=== PATIENT | male | born 1950 | race Caucasian/White ===

== ENCOUNTER 2017-04-10 08:55 | Day surgery (SDC) | payer MEDICARE ==
[~2017-04-10 08:55] MED LIST: MIDAZOLAM INJ 2 MG/2 ML VIAL ONE; TROP 1%/CYCLOPEN 1%/PHENYL 2% DROPS ONE
[2017-04-10] MEDS: PROPARACAINE 0.5% OPHTH SOL 15 ML BTTL ONE ×2 (09:00→09:32)
[2017-04-10] MEDS: TOBRAMYCIN SULF 0.3 % OPHT SOL 1 DROP LEFT_EYE ONE ×2 (09:00→09:51)
[2017-04-10] MEDS ORDERED: LIDOCAINE 1% PF 2 ML AMP INJ ONE (09:38)
[2017-04-10] MEDS ORDERED: DEXAMETHASONE 0.1% OPHTH SOL 1 DROP LEFT_EYE ONE ×2 (09:43→09:51)
[2017-04-10] MEDS ORDERED: TOBRAMYCIN SULF 0.3 % OPHT SOL 1 DROP LEFT_EYE ONE (09:44)
[2017-04-10] MEDS ORDERED: BRIMONIDINE 0.2% OPHTH DROPS LEFT_EYE ONE ×2 (09:44→09:51)
[2017-04-10 13:51] VITALS: BP 130/76; TEMP 98.1; O2SAT 98
== END 2017-04-10 10:30 | disposition home or self-care (01) ==
LOC: AMB 08:55
PROVIDERS: ATTEND Ophthalmology
DX: H25.12 Age-related nuclear cataract, left eye (principal); I10 Essential (primary) hypertension; I25.10 Atherosclerotic heart disease of native coronary artery without angina pectoris; E11.36 Type 2 diabetes mellitus with diabetic cataract; Z79.84 Long term (current) use of oral hypoglycemic drugs; Z79.82 Long term (current) use of aspirin; Z79.899 Other long term (current) drug therapy
CPT/HCPCS: 00142; 36416; 66984; 82948; J2250

== ENCOUNTER 2017-04-24 05:41 | Day surgery (SDC) | payer MEDICARE ==
[2017-04-24] MEDS ORDERED: TROP 1%/CYCLOPEN 1%/PHENYL 2% DROPS ONE (06:01)
[2017-04-24] MEDS ORDERED: MIDAZOLAM INJ 2 MG/2 ML VIAL ONE (06:52)
[2017-04-24] MEDS ORDERED: TROP 1%/CYCLOPEN 1%/PHENYL 2% DROPS OPHTH ONE (08:37)
[2017-04-24] MEDS: TOBRAMYCIN SULF 0.3 % OPHT SOL 1 DROP RIGHT_EYE ONE ×2 (08:37→09:37)
[2017-04-24] MEDS: PROPARACAINE 0.5% OPHTH SOL 15 ML BTTL ONE ×3 (08:37→09:17)
[2017-04-24] MEDS ORDERED: LIDOCAINE 1% PF 2 ML AMP INJ ONE (09:22)
[2017-04-24] MEDS ORDERED: DEXAMETHASONE 0.1% OPHTH SOL 1 DROP RIGHT_EYE ONE ×2 (09:27→09:37)
[2017-04-24] MEDS ORDERED: TOBRAMYCIN SULF 0.3 % OPHT SOL 1 DROP RIGHT_EYE ONE (09:27)
[2017-04-24] MEDS ORDERED: BRIMONIDINE 0.2% OPHTH DROPS RIGHT_EYE ONE ×2 (09:28→09:37)
[2017-04-24 10:52] VITALS: BP 141/81; TEMP 98.2; O2SAT 96
== END 2017-04-24 10:20 | disposition home or self-care (01) ==
LOC: AMB 05:41
PROVIDERS: ATTEND Ophthalmology
DX: H25.11 Age-related nuclear cataract, right eye (principal); I10 Essential (primary) hypertension; E11.9 Type 2 diabetes mellitus without complications; Z79.84 Long term (current) use of oral hypoglycemic drugs; Z79.899 Other long term (current) drug therapy
CPT/HCPCS: 00142; 36416; 66984; 82948; J2250

== ENCOUNTER 2017-10-04 07:31 | Emergency (ER) | payer MEDICARE ==
[2017-10-04 07:42] VITALS: TEMP 97.3
--- NOTE | 2017-10-04 07:44 | ED.PDOC ---
History of Present Illness - General Chief Complaint: General Stated Complaint: numbness to right forearm Time Seen by Provider: 10/04/17 07:43 Source: patient Exam Limitations: no limitations - History of Present Illness Initial Comments: Shailesh Clinton 67 y/o male stated that he had numbness on his right forearm medially 25 minutes ago working on his shop and had dull pain right shoulder 2 1 /2 weeks ago .denies history of trauma,weakness of right side, slurred speech, difficulty swallowing.Has DM2.htn.easing up on arrival here at ER. Timing/Duration: resolved prior to arrival Severity: moderate Improving Factors: nothing Worsening Factors: nothing Associated Symptoms: denies symptoms Allergies/Adverse Reactions: Allergies NO KNOWN ALLERGY Allergy (Unverified 09/25/12 15:54) Home Medications: Ambulatory Orders Amlodipine Besylate 10 mg PO DAILY 10/04/17 Aspirin [Pascual Low Dose] 81 mg PO DAILY 10/04/17 Fluticasone Propionate (Nasal) [Flonase] 50 mcg NA DAILY 10/04/17 Lisinopril 40 mg PO DAILY 10/04/17 Metformin HCl 250 mg PO DAILY 10/04/17 Rosuvastatin Calcium 20 mg PO DAILY 10/04/17 Review of Systems - Review of Systems Constitutional: States: no symptoms reported EENTM: States: no symptoms reported Respiratory: States: no symptoms reported Cardiology: States: no symptoms reported Gastrointestinal/Abdominal: States: no symptoms reported Genitourinary: States: no symptoms reported Musculoskeletal: States: see HPI Neurological: States: see HPI, numbness Hematologic/Lymphatic: States: no symptoms reported Past Medical History (General) - Patient Medical History Hx Stroke: No Hx Congestive Heart Failure: No Hx Hypertension: Yes Hx Diabetes: Yes Hx MRSA: No Surgical History: tonsillectomy, other - orif left wrist,cataract,RK - Vaccination History Hx Influenza Vaccination: Yes Hx Pneumococcal Vaccination: Yes - Social History Hx Tobacco Use: Yes Hx Substance Use: No Hx Physical Abuse: No Hx Emotional Abuse: No - Activities of Daily Living Patient Lives Alone: No Family Medical History - Family History Father Living Status: Unknown Hx Family Asthma: Yes - COPD-mom Hx Family Diabetes: Yes - mom Hx Family Cancer: Yes - dad-colon Physical Exam - Physical Exam General Appearance: Alert, Comfortable, No apparent distress Eye Exam: bilateral normal Ears, Nose, Throat: hearing grossly normal, normal ENT inspection, normal pharynx Neck: non-tender, full range of motion, supple Respiratory: chest non-tender, lungs clear, normal breath sounds, no respiratory distress Cardiovascular/Chest: normal peripheral pulses, regular rate, rhythm, no murmur Peripheral Pulses: radial,right: 2+, radial,left: 2+ Gastrointestinal/Abdominal: normal bowel sounds, non tender, soft Back Exam: normal inspection, no CVA tenderness Extremity: non-tender, normal inspection, no pedal edema, no calf tenderness Neurologic: no motor/sensory deficits, alert, oriented x 3, other - pronator drift negative DTR: 2+: Brachioradialis, left, Brachioradialis, right, Patellar, left, Patellar , right Skin Exam: normal color, warm/dry Lymphatic: no adenopathy Progress - Progress Progress: 10/04/17 08:03 Vital Signs - 8 hr 10/04/17 07:39 Temperature 97.3 F L Pulse Rate [ 61 Left Brachial] Respiratory 16 Rate Blood Pressure 132/80 [Left Arm] O2 Sat by Pulse 96 Oximetry 10/04/17 10:46 Discuss test results with patient no acute findings noted on his blood test .head ct.carotid duplex but emphasize the importance of following up with his primary MD KARUNA-04 october 2017 advised to call the office for appointment today and possible evaluation by NEUROLOGIST at [facility] where he goes for his medical care.Given copies of all test taken here at [facility] 10/04/17 10:50 - Results/Orders Results/Orders: 10/04/17 07:56 IV Care:Saline Lock per Protoc QSHIFT 10/04/17 08:00 EKG STAT Laboratory Results - last 24 hr 10/04/17 10/04/17 10/04/17 07:55 08:03 09:59 WBC 4.2 L RBC 3.97 L Hgb 12.7 L Hct 37.6 L MCV 94.9 H MCH 31.9 H MCHC 33.7 RDW 14.9 H Plt Count 141 MPV 10.8 H Absolute Neuts (auto) 1.70 L Absolute Lymphs (auto) 1.70 Absolute Monos (auto) 0.80 Absolute Eos (auto) 0.00 Absolute Basos (auto) 0.00 Neutrophils % 40.2 L Lymphocytes % 39.8 Monocytes % 18.6 H Eosinophils % 1.0 Basophils % 0.4 PT 9.8 INR 0.98 PTT (SP) 25.8 Sodium 139 Potassium 3.8 Chloride 107 Carbon Dioxide 23 Anion Gap 12.8 BUN 19 H Creatinine 0.85 BUN/Creatinine Ratio 22.4 H Random Glucose 112 H Serum Osmolality 280.5 Calcium 9.2 Magnesium 2.3 Total Bilirubin 0.9 Direct Bilirubin 0.1 Indirect Bilirubin 0.8 AST 160 H ALT 24 Alkaline Phosphatase 59 Creatine Kinase 169 CK-MB (CK-2) 2.3 CK-MB (CK-2) % 1.36 Troponin I < 0.02 < 0.02 Serum Total Protein 7.6 Albumin 4.7 Urine Color Yellow Urine Appearance Clear Urine pH 6.0 Ur Specific [place] <= 1.005 Urine Protein Negative Urine Glucose (UA) Negative Urine Ketones Negative Urine Blood Negative Urine Nitrite Negative Urine Bilirubin Negative Urine Urobilinogen 0.2 Ur Leukocyte Esterase Negative Urine RBC 0 Urine WBC 0 Ur Epithelial Cells 0 Urine Bacteria 0 - EKG/XRAY/CT EKG: Kam, Sinus, no ST T wave changes Comments: HR-54 XRAY: chest - no acute abnormality Xray Comments: carotid US Duplex-50% blockage both carotid arteries CT: posterior vertebral arteries patent CT Ordered: Yes - head-no acute infarct or hemorrhage Departure - Departure Clinical Impression: Pain and numbness of right upper extremity Time of Disposition: 10:51 Disposition: Discharge to Home or Self Care Departure Forms: ED Discharge - Pt. Copy, Patient Portal Self Enrollment Instructions: Paresthesias (DC) Referrals: Car Banegas III, MD [Primary Care Provider] - 1-2 Weeks Home Medications: Ambulatory Orders Amlodipine Besylate 10 mg PO DAILY 10/04/17 Aspirin [Pascual Low Dose] 81 mg PO DAILY 10/04/17 Fluticasone Propionate (Nasal) [Flonase] 50 mcg NA DAILY 10/04/17 Lisinopril 40 mg PO DAILY 10/04/17 Metformin HCl 250 mg PO DAILY 10/04/17 Rosuvastatin Calcium 20 mg PO DAILY 10/04/17 Additional Instructions: Return to emergency room as needed;Follow up with primary Md at [facility] for Neurologist evaluation;Continue with all home medications
--- NOTE | 2017-10-04 08:29 | RAD ---
EXAM DESCRIPTION: Chest,2 Views CLINICAL HISTORY: 67 years Male, right sided numbness COMPARISON: None. IMPRESSION: Heart size and pulmonary vascularity are within normal limits. The lungs are hyperexpanded. No confluent airspace consolidation, pleural effusion, or pneumothorax. Calcified granuloma in the right lower lung zone. No acute osseous abnormality. Electronically signed by: Don Ramesh MD 10/04/2017 8:28 AM CDT
--- NOTE | 2017-10-04 08:31 | CT ---
EXAM DESCRIPTION: Head CLINICAL HISTORY: numbness right side COMPARISON: None available TECHNIQUE: Multiple axial images of the head without contrast. Multiplanar reformatted images. This exam was performed according to our departmental dose-optimization program, which includes automated exposure control, adjustment of the mA and/or kV according to patient size and/or use of iterative reconstruction technique. FINDINGS: There is no CT evidence of intracranial hemorrhage, mass effect, or large territory infarction. Mild generalized volume loss. Mild patchy supratentorial white matter hypodensities. There are no abnormal extra-axial fluid collections. Calcific plaque in the visualized arteries. There is no acute calvarial defect. Moderate mucosal thickening in the ethmoid air cells. The mastoid air cells are clear. IMPRESSION: 1. No CT evidence of an acute intracranial abnormality. If there is concern for an acute or subacute infarct, consider follow-up MRI. 2. Mild senescent changes. Electronically signed by: Don Ramesh MD 10/04/2017 8:30 AM CDT
--- NOTE | 2017-10-04 09:38 | US ---
EXAM DESCRIPTION: Carotid Duplex CLINICAL HISTORY: 67 years, Male, numbness right upper extremiry COMPARISON: [None.] FINDINGS: Indirect estimation of percent stenosis is inferred from velocity parameters and cross referenced to published or self-generated correlations among velocity parameters. Peak systolic velocity right common carotid artery 78 centimeters/second. Peak systolic velocity right internal carotid artery 58 centimeters/second. Right ICA to CCA ratio 0.7. Antegrade flow in the right vertebral artery. Grayscale images show a small amount of plaque in the right carotid bifurcation. Peak systolic velocity left common carotid artery 66 centimeters/second. Peak systolic velocity left internal carotid artery 63 centimeters/second. Left ICA to CCA ratio 1.0. [Antegrade] flow in the left vertebral artery. Grayscale images show a moderate amount of plaque in the left carotid bifurcation. IMPRESSION: Mild (less than 50%) bilateral carotid artery stenosis, worse on the left side. Electronically signed by: Marquise Kirby MD 10/04/2017 9:36 AM CDT
[2017-10-04 09:52] VITALS: O2SAT 99
[2017-10-04 11:02] VITALS: BP 131/67
== END 2017-10-04 11:01 | disposition home or self-care (01) ==
LOC: ER 07:31
DX: R20.0 Anesthesia of skin (principal); M79.631 Pain in right forearm; R00.1 Bradycardia, unspecified; E11.9 Type 2 diabetes mellitus without complications; I10 Essential (primary) hypertension; Z79.84 Long term (current) use of oral hypoglycemic drugs; Z79.899 Other long term (current) drug therapy; Z79.82 Long term (current) use of aspirin

== ENCOUNTER 2017-12-26 19:11 | Emergency (ER) | payer MEDICARE ==
--- NOTE | 2017-12-26 19:55 | ED.PDOC ---
History of Present Illness - General Chief Complaint: Skin/Abrasion/Tear Stated Complaint: bit his tonuge, unable to stop bleed Time Seen by Provider: 12/26/17 19:53 Source: patient Exam Limitations: no limitations - History of Present Illness Initial Comments: THE PATIENT PRESENTS TO THE EMERGENCY DEPARTMENT W/ COMPLAINT OF BLEEDING FROM THE TONGUE STATUS POST BITING IT WHILE EATING A PEANUT BAR APPROXIMATELY 45 MINUTES PRIOR TO ARRIVAL. THE PATIENT STATES THAT THE AREA PERSISTENTLY BLED AND DUE TO THIS HE COMES TO THE EMERGENCY FOR FURTHER EVALUATION AND CARE. THE PATIENT IS WITHOUT FURTHER ACUTE COMPLAINTS AT THIS TIME BUT WAS CONCERNED THAT THE BLEEDING WILL PERSIST DUE TO BEING ON ASA. Improving Factors: nothing Worsening Factors: nothing Associated Symptoms: denies symptoms Allergies/Adverse Reactions: Allergies NO KNOWN ALLERGY Allergy (Unverified 09/25/12 15:54) Home Medications: Ambulatory Orders Aspirin [Pascual Low Dose] 81 mg PO DAILY 10/04/17 Fluticasone Propionate (Nasal) [Flonase] 50 mcg NA DAILY 10/04/17 RX: Amlodipine Besylate 10 mg PO DAILY 10/04/17 RX: Lisinopril 40 mg PO DAILY 10/04/17 RX: Metformin HCl 250 mg PO DAILY 10/04/17 RX: Rosuvastatin Calcium 20 mg PO DAILY 10/04/17 Review of Systems - Review of Systems Review of Systems: 12/26/17 19:55 A 10 PT REVIEW OF SYSTEMS WAS DONE AT THE BEDSIDE AND IS NEGATIVE EXCEPT NOTED IN HIS HPI. Past Medical History (General) - Patient Medical History Hx Stroke: No Hx Congestive Heart Failure: No Hx Hypertension: Yes Hx Diabetes: Yes Hx MRSA: No - Vaccination History Hx Influenza Vaccination: Yes Hx Pneumococcal Vaccination: Yes - Social History Hx Tobacco Use: Yes Hx Substance Use: No Hx Physical Abuse: No Hx Emotional Abuse: No Family Medical History - Family History Father Family History: Unknown Living Status: Unknown Hx Family Asthma: Yes - COPD-mom Hx Family Diabetes: Yes - mom Hx Family Cancer: Yes - dad-colon Physical Exam - Physical Exam General Appearance: Alert, Well Developed, Well Groomed Ears, Nose, Throat: hearing grossly normal, normal ENT inspection, other - + SUPERFICIAL ABRASION ON THE LEFT SIDE OF THE TONGUE NOTED WITH SMALL TRIANGULAR PUNCTURE WOUND. THERE IS NO ACTIVE BLEEDING. Neck: non-tender Respiratory: lungs clear, normal breath sounds Cardiovascular/Chest: regular rate, rhythm Gastrointestinal/Abdominal: normal bowel sounds, soft Neurologic: alert, oriented x 3 Skin Exam: normal color, warm/dry Progress - Progress Progress: 12/26/17 19:56 THE PATIENT'S PRESENTATION IS CONCERNING FOR SUPERFICIAL ABRASION OF THE TONGUE AT THIS TIME. IN LIGHT OF THIS NO LONGER BLEEDING DURING MY EVALUATION I WILL PLACE A SMALL COAT OF DERMABOND TO FORM A PROTECTIVE BARRIER AT THIS TIME (THIS WAS PLACED ON THE ABRADED SITE ONLY NOT ON THE PUNCTURE). I DO NOT THINK THAT FURTHER WORK UP IS INDICATED AT THIS TIME. 12/26/17 20:28 THE PATIENT REMAINS WELL AT THIS TIME. HE HAS BEEN ADVISED TO FOLLOW UP WITH HIS PCP TOMORROW A.M. FOR RECHECK. THE PATIENT HAS BEEN ADVISED TO AVOID EATING SPICY FOODS WELL TO EAT A SOFT DIET FOR THE NEXT 24 HOURS TO HELP THE DERMABOND FORM A PROTECTIVE BARRIER. THE PATIENT WAS ADVISED RETURN TO THE ED IF ANY CONCERNS ARISE SUCH RECURRENT BLEEDING, INCREASED PAIN, DISCHARGE FROM HIS TONGUE OR ANY OTHER ISSUES ARISE. THE PATIENT VERBALIZED UNDERSTANDING OF THESE INSTRUCTIONS. 12/26/17 20:28 12/26/17 20:32 Departure - Departure Clinical Impression: Tongue biting ICD-10 Supporting Text: TONGUE ABRASION Disposition: Discharge to Home or Self Care Condition: Fair Departure Forms: ED Discharge - Pt. Copy, Patient Portal Self Enrollment Instructions: DI for Abrasion, How to Care for Your Mouth and Teeth Diet: bland diet, other - SOFT DIET Referrals: Car Banegas III, MD [Primary Care Provider] - 1-2 Days (TOMORROW FOR FURTHER EVALUATION AND CARE.) Home Medications: Ambulatory Orders Aspirin [Pascual Low Dose] 81 mg PO DAILY 10/04/17 Fluticasone Propionate (Nasal) [Flonase] 50 mcg NA DAILY 10/04/17 RX: Amlodipine Besylate 10 mg PO DAILY 10/04/17 RX: Lisinopril 40 mg PO DAILY 10/04/17 RX: Metformin HCl 250 mg PO DAILY 10/04/17 RX: Rosuvastatin Calcium 20 mg PO DAILY 10/04/17
[2017-12-26 20:30] VITALS: O2SAT 98
[2017-12-26 21:14] VITALS: BP 129/80; TEMP 97.9
== END 2017-12-26 21:05 | disposition home or self-care (01) ==
LOC: ER 19:11
DX: S00.512A Abrasion of oral cavity, initial encounter (principal); I10 Essential (primary) hypertension; E11.9 Type 2 diabetes mellitus without complications; X58.XXXA Exposure to other specified factors, initial encounter; Y92.9 Unspecified place or not applicable; Y93.89 Activity, other specified; Z79.82 Long term (current) use of aspirin; Z79.899 Other long term (current) drug therapy; Z79.84 Long term (current) use of oral hypoglycemic drugs; Z87.891 Personal history of nicotine dependence